=== PATIENT | male | born 1975 | race Caucasian/White ===

== ENCOUNTER → 2019-04-10 | Outpatient (CLI) | payer OTHER, SELFPAY ==
[2019-04-06 16:42] VITALS: BMI 25.0
== END | disposition home or self-care (01) ==
LOC: RAD 10:54
PROVIDERS: Family Provider Family Medicine; PCP Family Medicine; Referring Provider Chiropractor; Visit Provider Chiropractor
DX: M54.12 Radiculopathy, cervical region (principal); M99.01 Segmental and somatic dysfunction of cervical region
CPT/HCPCS: 72040

== ENCOUNTER → 2019-07-24 | Outpatient (CLI) | payer OTHER, SELFPAY ==
[2019-04-13 17:49] VITALS: BMI 25.0
--- NOTE | 2019-07-24 14:41 | RAD_ITS ---
STUDY: X-RAY CHEST REASON FOR EXAM: Male, 43 years old. Two-week history of cough. TECHNIQUE: PA and lateral views of the chest. COMPARISON: None. FINDINGS: The lungs are clear and expanded. There is no demonstrated pleural abnormality. Normal size heart. Normal mediastinum and adolfo. Normal visualized pulmonary arteries. Normal visualized aortic arch and descending thoracic aorta. Normal visualized thoracic spine. Normal visualized ribs, clavicles, and shoulders. There is no demonstrated abnormality of the visualized soft tissue structures of the upper abdomen. RAD/Chest PA and Lateral IMPRESSION: Normal x-ray examination of the chest. Electronically Signed: Devaughn Massey, at 15:08 EST , Service support ,
== END | disposition home or self-care (01) ==
LOC: HPRAD 14:41
PROVIDERS: Family Provider Family Medicine; PCP Family Medicine; Referring Provider Physician Assistant; Visit Provider Physician Assistant
DX: R05 Cough (principal)
CPT/HCPCS: 71046

== ENCOUNTER → 2021-02-04 11:04 | Outpatient (CLI) | payer OTHER, SELFPAY ==
[2021-02-03 16:26] VITALS: BMI 25.5
--- NOTE | 2021-02-04 11:06 | RAD_ITS ---
STUDY: X-RAY - THORACIC SPINE REASON FOR EXAM: Male, 45 years old. Thoracic and rib pain. TECHNIQUE: 3 view(s) of the thoracic spine were obtained. COMPARISON: None. FINDINGS: Normal kyphosis of the thoracic spine. There is no substantial scoliosis. There is demineralization of the thoracic spine with endplate spondylosis. Normal disc space heights. There is no evidence of acute fracture or loss of vertebral axial height. The soft tissue structures are unremarkable. RAD/Thoracic Spine 3 Views IMPRESSION: Degenerative changes of the thoracic spine. No acute fracture or subluxation. Electronically Signed: Roque Delgadillo DO at 23:59 EDT Tel [phone], Service support ,
== END ==
PROVIDERS: PCP Family Medicine; Referring Provider Chiropractor; Visit Provider Chiropractor
DX: M54.14 Radiculopathy, thoracic region (principal)
CPT/HCPCS: 72072

== ENCOUNTER → 2022-08-21 | Outpatient (CLI) | payer OTHER, SELFPAY ==
[2022-08-21 07:41] LABS: Hemoglobin A1c 5.4 % (3.8-5.6)
== END | disposition home or self-care (01) ==
PROVIDERS: PCP Family Medicine
DX: R73.01 Impaired fasting glucose (principal)
CPT/HCPCS: 36415; 83036

== ENCOUNTER → 2023-10-14 | Outpatient (CLI) | payer OTHER, SELFPAY ==
--- NOTE | 2023-10-14 08:10 | RAD_ITS ---
STUDY: X-RAY - ABDOMEN/PELVIS REASON FOR EXAM: Male, 48 years old. LLQ ABD PAIN TECHNIQUE: 4 COMPARISON: None. FINDINGS: Normal visualized lung bases. There is an unremarkable bowel gas pattern. Increased stool. Air-fluid levels. The visualized liver, spleen and kidneys are grossly normal in size and morphology. Normal soft tissue structures. Normal visualized osseous structures. RAD/Abd Inc Decub and/or Erect IMPRESSION: Increased stool. Mild Ileus. Electronically Signed: Lencho Larson MD at 17:42 EST ,
== END | disposition home or self-care (01) ==
LOC: RAD 08:09
PROVIDERS: PCP Family Medicine; Referring Provider Family Medicine; Visit Provider Family Medicine
DX: R10.32 Left lower quadrant pain (principal)
CPT/HCPCS: 74019

== ENCOUNTER → 2024-01-27 | Outpatient (CLI) | payer OTHER, SELFPAY ==
--- NOTE | 2024-01-27 17:04 | CT_ITS ---
INDICATION: INFECTION IN ABD EXAMINATION: CT ABDOMEN AND PELVIS WITH CONTRAST - CT Abdomen And Pelvis W/ Contrast Injection TECHNIQUE: Helically acquired images were obtained of the abdomen and pelvis following IV contrast. A radiation dose optimization technique was used for this scan. IV Contrast dosage and agent: 100 cc [id number] Oral contrast: Yes. COMPARISON: None. FINDINGS: LOWER CHEST: Lung bases are clear. No cardiomegaly or pericardial effusion. LIVER: Homogeneous. No focal mass. GALLBLADDER AND BILIARY TREE: No calcified gallstones. No gallbladder distension or wall edema. No intra- or extrahepatic biliary ductal dilation. PANCREAS: No focal cystic or solid mass. SPLEEN: Normal size without focal cystic or solid mass. ADRENAL GLANDS: No nodules. KIDNEYS AND URETERS: Normal renal size and position. No hydronephrosis. PERITONEUM: No ascites or free air. BOWEL: Normal appendix. No stomach or bowel distension. No focal inflammatory change. LYMPH NODES: No enlarged mesenteric or retroperitoneal lymph nodes. VESSELS: Aorta is non-dilated. URINARY BLADDER: Unremarkable. REPRODUCTIVE ORGANS: No pelvic masses. ABDOMINAL WALL: No discrete abdominal or pelvic wall hernia. BONES: Unremarkable. CT/Abdomen/Pelvis WITH Contrast IMPRESSION: No acute findings in the abdomen or pelvis. Electronically Signed: Jb Melgar MD at 23:48 EDT ,
== END | disposition home or self-care (01) ==
PROVIDERS: PCP Family Medicine; Referring Provider Family Medicine; Visit Provider Family Medicine
DX: K65.9 Peritonitis, unspecified (principal)
CPT/HCPCS: 74177; Q9967; A4216